=== PATIENT | male | born 1940 | race Caucasian/White ===

== ENCOUNTER 2016-12-16 20:51 | Observation (INO) | payer OTHER ==
--- NOTE | 2016-12-16 21:45 | DR.GENAD ---
HPI - PCP Primary Care Physician: THANH - HPI Comment HPI Comment: ABDOMINAL PAIN THAT GOT WORSE TONIGHT. TOOK LAXITIVE WITH POOR RESULT. NOW RUNNING FEVER. PATIENT IS WEAK, NOT EATING AND FEEL DRAIN OF ENERGY. CONCERN HE WILL PASS OUT. - Complaint/Symptoms Chief Complaint Doctors Comments: ABDOMINAL PAIN. Chief Complaint:: CONSTIPATION Self Treatment fo Chief Complaint: PATIENT HAS BEEN TAKING MIRALAX - Nurses notes reviewed Nurses Notes Review: Yes - Source History Provided: Patient - Mode of Arrival Mode of Arrival: Ambulatory - Timing Onset of Chief Complaint: 12/16/16 Came on: Gradually - Duration Duration: Constant Duration: Days - Severity Severity: Moderate PMH - PMH Past Medical History: Yes Past Medical History Comment: PARKINSON'S DISEASE, [place] FEVER ARTHRITIS Past Surgical History: No - Family History History of Family Medical Conditions: Yes Family Medical History: Diabetes Mellitus, [place], Coronary Artery Disease - Social History Does patient currently use any type of tobacco product: No Have you used tobacco products in the last 12 months: No Type of Tobacco Use: None Does any household member use tobacco: No Alcohol Use: None Do you use any recreational Drugs:: No Lives With: Family Lives Where: Home - infectious screening In the last 2 months have you had wt loss of >10#?: NO Have you had fever, night sweats or hemotysis?: No Have you traveled outside the country in the last 6 months?: No Isolation: Standard ROS - Review of Systems Constitutional: Fever, Weakness, Fatigue, Loss of Appetite. negative: Chills, Diaphoresis Eyes: No Symptoms Reported. negative: Eye Pain, Discharge ENTM: Nose Congestion. negative: Ear Pain, Nose Discharge, Throat Pain Respiratoy: Non-Productive Cough, Short of Breath. negative: Productive Cough, Wheezing, Hemoptysis Cardiovascular: Chest Pain, Edema, Syncope Gastrointestinal/Abdominal: Abdominal Pain Genitourinary: negative: Dysuria, Frequency, Hematuria Neurological: Tremors (PARKINSONS) Musculoskeletal: Muscle Pain Integumentary: Dryness Endocrine: No Symptoms Reported Unable to Obtain Due To: Altered mental status PE - Vital Signs Vitals: Temperature 98.0 F Pulse Rate 85 Respiratory Rate 16 Blood Pressure 194/89 O2 Sat by Pulse Oximetry 100 - General Limitations: No Limitations General Appearance: Alert - Head Head Exam: Normal Inspection - Eyes Eye exam: Normal Appearance - ENT ENT Exam: Normal External Ear Exam TM/Canal Exam: Bilateral Normal Nose Exam: Normal Nose Exam Mouth Exam: Normal Inspection Throat Exam: Normal Inspection - Neck Neck Exam: Trachea Midline. negative: Tenderness, Meningismus, Lymphadenopathy - Chest Chest Inspection: Symmetric Chest Wall Rise - Respiratory Respiratory Exam: Normal Lung Sounds Bilat Respiratory Exam: Bilateral Rhonchi, Upper Rhonchi, Lower Rhonchi - Abdominal Exam Abdominal Exam: Normal Inspection, Normal Bowel Sounds, Soft, Tenderness Abdominal Tenderness: Diffuse, Moderate - Extremities Extremities Exam: Normal Inspection - Back Back Exam: Normal Inspection - Neurologic Neurological Exam: Alert, Oriented X3 - Psychiatric Psychiatric Exam: Normal Affect - Skin Skin Exam: Dry MDM - Differential Diagnosis Differential Diagnosis: BOWEL OBSTRUCTION, ABDOMINAL PAIN, WEAKNESS, ANOREXIA, UTI Course - Treatment Treatment: SEE REPORT - Education/Counseling Education/Counseling: Patient, Family, Education Educated On: Diagnosis ROR - Labs Reviewed Laboratory Results Reviewed?: Yes Result Diagrams: 12/17/16 04:35 12/17/16 04:35 Laboratory: WBC 6.6 X10^3/uL (3.6-10.0) 12/17/16 04:35 RBC 4.08 X10^6/uL (4.7-6.0) L 12/17/16 04:35 Hgb 12.4 g/dL (13.5-18.0) L 12/17/16 04:35 Hct 36.4 % (42.0-54.0) L 12/17/16 04:35 MCV 89.3 fL (80.0-100.0) 12/17/16 04:35 MCH 30.5 pg (27.0-34.0) 12/17/16 04:35 MCHC 34.1 g/dL (33.0-35.0) 12/17/16 04:35 RDW 13.4 % (11.6-16.5) 12/17/16 04:35 Plt Count 259 X10^3/uL (150.0-450.0) 12/17/16 04:35 MPV 7.6 fL (7.4-11.0) 12/17/16 04:35 Neut % 66.5 % (42.0-75.0) 12/17/16 04:35 Lymph % 20.5 % (21.0-51.0) L 12/17/16 04:35 [place] % 10.9 % (0.0-13.0) 12/17/16 04:35 Eos % 1.3 % (0.9-2.9) 12/17/16 04:35 Baso % 0.8 % (0.2-1.0) 12/17/16 04:35 Neut # 4.4 x10^3/uL (2.2-4.8) 12/17/16 04:35 Lymph # 1.3 X10^3/uL (1.3-2.9) 12/17/16 04:35 [place] # 0.7 x10^3/uL (0.3-0.8) 12/17/16 04:35 Eos # 0.1 x10^3/uL (0.0-0.2) 12/17/16 04:35 Baso # 0.1 X10^3/uL (0.0-0.1) 12/17/16 04:35 Absolute Nucleated RBC 0.0 /100WBC 12/17/16 04:35 Sodium 142 mmol/L (136-145) 12/17/16 04:35 Corrected Sodium TNP 12/17/16 04:35 Potassium 4.0 mmol/L (3.5-5.1) 12/17/16 04:35 Chloride 108 mmol/L (98-107) H 12/17/16 04:35 Carbon Dioxide 25.3 mmol/L (21-32) 12/17/16 04:35 BUN 11 mg/dL (7-18) 12/17/16 04:35 Creatinine 0.78 mg/dL (0.70-1.30) 12/17/16 04:35 Est GFR (MDRD) Af Amer > 60 (>60) 12/17/16 04:35 Est GFR (MDRD) Non-Af > 60 (>60) 12/17/16 04:35 Glucose 99 mg/dL (65-99) 12/17/16 04:35 Calcium 8.3 mg/dL (8.5-10.1) L 12/17/16 04:35 Corrected Calcium 9.3 mg/dL (8.5-10.1) 12/17/16 04:35 Total Bilirubin 0.50 mg/dL (0.2-1.0) 12/17/16 04:35 AST 25 Units/L (15-37) 12/17/16 04:35 ALT 32 Units/L (12-78) 12/17/16 04:35 Alkaline Phosphatase 73 Units/L (46-116) 12/17/16 04:35 Total Protein 5.7 g/dL (6.4-8.2) L 12/17/16 04:35 Albumin 2.7 g/dL (3.4-5.0) L 12/17/16 04:35 Globulin 3.0 g/dL (2.5-4.5) 12/17/16 04:35 Albumin/Globulin Ratio 0.9 Ratio (1.1-2.1) L 12/17/16 04:35 Specimen Type Clean catch urine 12/16/16 23:12 Urine Color Yellow (YELLOW) 12/16/16 23:12 Urine Appearance Clear (CLEAR) 12/16/16 23:12 Urine pH 6.0 (5.0 - 8.0) 12/16/16 23:12 Ur Specific [place] 1.015 (1.000-1.030) 12/16/16 23:12 Urine Protein Negative (NEGATIVE) 12/16/16 23:12 Urine Glucose (UA) Negative (NEGATIVE) 12/16/16 23:12 Urine Ketones Negative (NEGATIVE) 12/16/16 23:12 Urine Occult Blood Negative (NEGATIVE) 12/16/16 23:12 Urine Nitrite Negative (NEGATIVE) 12/16/16 23:12 Urine Bilirubin Negative (NEGATIVE) 12/16/16 23:12 Urine Urobilinogen Normal (NORMAL) 12/16/16 23:12 Ur Leukocyte Esterase Negative (NEGATIVE) 12/16/16 23:12 Urine RBC 0-1 /HPF (NEGATIVE) 12/16/16 23:12 Urine WBC 0-2 /HPF (NEGATIVE) 12/16/16 23:12 Ur Squamous Epith Cells Rare /HPF (NEGATIVE) 12/16/16 23:12 Urine Bacteria Negative /HPF (NEGATIVE) 12/16/16 23:12 Ur Culture Indicated? No/not indicated 12/16/16 23:12 - XRAY XRAY Interpreted by: Radiologist - EKG Rhythm: NSR (EKG NOTED.) - Diagnosis Discharge Problem: Generalized weakness Abdominal pain Qualifiers: Abdominal location: generalized Qualified Code(s): R10.84 - Generalized abdominal pain Failure to thrive Qualifiers: Failure to thrive age range: in adult Qualified Code(s): R62.7 - Adult failure to thrive - Discharge Plan Disposition: 09 ADMITTED INPATIENT Condition: Stable - Follow ups/Referrals - Instructions
--- NOTE | 2016-12-16 22:12 | RAD ---
Acute abdominal series with single view chest Indication: Constipation Comparison: Chest x-ray 09/08/2015 Findings: The heart size is normal and the lungs are clear. The bowel gas pattern is normal. No free air identified. The stool burden is not markedly increased. Impression: No acute bone abnormality. No gross constipation. Reported By:
[2016-12-16 22:13] LABS: ALANINE AMINOTRANSFERASE 42 Units/L (12-78); ALBUMIN 3.6 g/dL (3.4-5.0); ALKALINE PHOSPHATASE 91 Units/L (46-116); ASPARTATE AMINO TRANSFERASE 33 Units/L (15-37); BLOOD UREA NITROGEN 12 mg/dL (7-18); CALCIUM 8.9 mg/dL (8.5-10.1); CARBON DIOXIDE 28.1 mmol/L (21-32); CHLORIDE 105 mmol/L (98-107); CREATININE 1.04 mg/dL (0.70-1.30); GLUCOSE 106 mg/dL (65-99); SODIUM 141 mmol/L (136-145); TOTAL PROTEIN 7.3 g/dL (6.4-8.2); eGFR BLACK RACES > 60 (>60); eGFR NON BLACK RACES > 60 (>60)
[2016-12-16 22:32] LABS: BASOPHILS # (AUTO) 0.1 X10^3/uL (0.0-0.1); BASOPHILS % (AUTO) 0.9 % (0.2-1.0); EOSINOPHILS % (AUTO) 0.5 % (0.9-2.9); HEMATOCRIT 38.4 % (42.0-54.0); HEMOGLOBIN 13.2 g/dL (13.5-18.0); LYMPHOCYTES # (AUTO) 0.7 X10^3/uL (1.3-2.9); LYMPHOCYTES % (AUTO) 7.6 % (21.0-51.0); MEAN CORPUSCULAR HEMOGLOBIN 30.5 pg (27.0-34.0); MEAN CORPUSCULAR HGB CONC 34.3 g/dL (33.0-35.0); MONOCYTES # (AUTO) 0.6 x10^3/uL (0.3-0.8); MONOCYTES % (AUTO) 6.8 % (0.0-13.0); NEUTROPHILS % (AUTO) 84.2 % (42.0-75.0); PLATELET COUNT 301 X10^3/uL (150.0-450.0); RED BLOOD COUNT 4.32 X10^6/uL (4.7-6.0); RED CELL DISTRIBUTION WIDTH 13.3 % (11.6-16.5); WHITE BLOOD COUNT 9.6 X10^3/uL (3.6-10.0)
[2016-12-16 23:36] LABS: BILIRUBIN,URINE NEGATIVE (NEGATIVE); BLOOD/HEMOGLOBIN,URINE NEGATIVE (NEGATIVE); GLUCOSE, URINE NEGATIVE (NEGATIVE); KETONES,URINE NEGATIVE (NEGATIVE); LEUKOCYTE ESTERASE ,URINE NEGATIVE (NEGATIVE); NITRITES,URINE NEGATIVE (NEGATIVE); PROTEIN,URINE NEGATIVE (NEGATIVE); UROBILINOGEN,URINE NORMAL (NORMAL)
[2016-12-16 23:44] LABS: APPEARANCE,URINE CLEAR (CLEAR); BACTERIA,URINE NEGATIVE /HPF (NEGATIVE); COLOR,URINE YELLOW (YELLOW); RBC,URINE 0-1 /HPF (NEGATIVE); SQUAMOUS EPITHELIAL CELL,UR RARE /HPF (NEGATIVE)
[2016-12-16] MEDS ORDERED: ZOFRAN INJ 4 MG VIAL IVP PRN (23:58)
[2016-12-16] MEDS ORDERED: MORPHINE SULFATE INJ 2 MG IVP PRN (23:58)
[2016-12-17] MEDS: NS 1000 ML 1,000 ML IV SCH ×3 (00:18→13:40)
[2016-12-17 01:33] VITALS: BMI 23.1
[2016-12-17] MEDS: ANTIVERT TAB 25 MG PO SCH ×3 (05:22→21:19)
[2016-12-17] MEDS: PERIACTIN TAB 4 MG PO SCH ×3 (05:22→21:19)
[2016-12-17] MEDS: SINEMET (PLAIN) 25/100 MG PO SCH ×3 (05:22→21:20)
[2016-12-17 05:43] LABS: BASOPHILS # (AUTO) 0.1 X10^3/uL (0.0-0.1); BASOPHILS % (AUTO) 0.8 % (0.2-1.0); EOSINOPHILS # (AUTO) 0.1 x10^3/uL (0.0-0.2); EOSINOPHILS % (AUTO) 1.3 % (0.9-2.9); HEMATOCRIT 36.4 % (42.0-54.0); HEMOGLOBIN 12.4 g/dL (13.5-18.0); LYMPHOCYTES # (AUTO) 1.3 X10^3/uL (1.3-2.9); LYMPHOCYTES % (AUTO) 20.5 % (21.0-51.0); MEAN CORPUSCULAR HEMOGLOBIN 30.5 pg (27.0-34.0); MEAN CORPUSCULAR HGB CONC 34.1 g/dL (33.0-35.0); MEAN CORPUSCULAR VOLUME 89.3 fL (80.0-100.0); MEAN PLATELET VOLUME 7.6 fL (7.4-11.0); MONOCYTES # (AUTO) 0.7 x10^3/uL (0.3-0.8); MONOCYTES % (AUTO) 10.9 % (0.0-13.0); NEUTROPHILS # (AUTO) 4.4 x10^3/uL (2.2-4.8); NEUTROPHILS % (AUTO) 66.5 % (42.0-75.0); PLATELET COUNT 259 X10^3/uL (150.0-450.0); RED BLOOD COUNT 4.08 X10^6/uL (4.7-6.0); RED CELL DISTRIBUTION WIDTH 13.4 % (11.6-16.5); WHITE BLOOD COUNT 6.6 X10^3/uL (3.6-10.0)
[2016-12-17 05:53] LABS: ALANINE AMINOTRANSFERASE 32 Units/L (12-78); ALBUMIN 2.7 g/dL (3.4-5.0); ALKALINE PHOSPHATASE 73 Units/L (46-116); ASPARTATE AMINO TRANSFERASE 25 Units/L (15-37); BLOOD UREA NITROGEN 11 mg/dL (7-18); CALCIUM 8.3 mg/dL (8.5-10.1); CARBON DIOXIDE 25.3 mmol/L (21-32); CHLORIDE 108 mmol/L (98-107); COR CA(FOR HYPOALB) 9.3 mg/dL (8.5-10.1); CREATININE 0.78 mg/dL (0.70-1.30); GLUCOSE 99 mg/dL (65-99); SODIUM 142 mmol/L (136-145); TOTAL PROTEIN 5.7 g/dL (6.4-8.2); eGFR BLACK RACES > 60 (>60); eGFR NON BLACK RACES > 60 (>60)
[2016-12-17] MEDS ORDERED: ULTRAM PO PRN (10:14)
[2016-12-17] MEDS ORDERED: COLACE CAP 100 MG PO SCH ×2 (11:00→21:00)
[2016-12-17] MEDS ORDERED: NS 100 ML IV 100 ML IV ONE (12:23)
--- NOTE | 2016-12-17 13:25 | CT ---
HISTORY: Abdominal pain/constipation. Study: CT abdomen and pelvis with contrast Comparison: Acute abdominal series dated September 08, 2015. Technique: Multiple axial images of the abdomen and pelvis were obtained from the lung bases to the pubic symph ysis after/ without/ both prior to and after the administration of IV contrast. Dose reduction tech niques including Automated Exposure Control (AEC) and adjustment of mA and kV were utilized. Findings: Bibasilar scarring versus atelectasis. Otherwise, the visualized portions of the lung bases are unre markable. Multiple hypodense lesions within the visualized liver. Many of these are too small to jordi racterize. These likely represent simple cysts. Remaining liver is unremarkable. Punctate nonobstruc ting calcification within the left superior renal pole. Small hiatal hernia. The spleen, pancreas, r ight kidney, and adrenal glands are unremarkable in their CT appearance. The gallbladder is unremark able in its CT appearance. No significant mesenteric lymphadenopathy or stranding can be observed. No free fluid or free air is seen within the abdomen. Large amounts of stool are seen from the tra nsverse colon to the rectum. The visualized large and small bowel otherwise appear normal. The appen deo is not well seen. The bladder and prostate appear normal. Small fat containing umbilical hernia. Degenerative changes of the spine. The osseous structures otherwise appear normal for age. IMPRESSION: 1. Constellation of findings likely representing constipation. No CT evidence to suggest acute abdo dayana/pelvic pathology. 2. Other chronic findings as above. Reported By:
[2016-12-17] MEDS: MILK OF MAGNESIA PO SCH ×4 (13:34→21:18)
[2016-12-17] MEDS: MEGACE PO SCH ×3 (13:34→21:20)
[2016-12-17] MEDS ORDERED: VISTARIL PO SCH (21:00)
[2016-12-17] MEDS ORDERED: MIRALAX POWDER (1 DOSE 17GM) PO SCH (21:00)
[2016-12-17] MEDS ORDERED: SENOKOT PO SCH (21:00)
[2016-12-17] MEDS: COLACE CAP 100 MG PO SCH (21:19)
[2016-12-18 05:04] LABS: ALANINE AMINOTRANSFERASE 18 Units/L (12-78); ALBUMIN 2.9 g/dL (3.4-5.0); ALKALINE PHOSPHATASE 79 Units/L (46-116); ASPARTATE AMINO TRANSFERASE 26 Units/L (15-37); BLOOD UREA NITROGEN 8 mg/dL (7-18); CALCIUM 8.3 mg/dL (8.5-10.1); CARBON DIOXIDE 26.5 mmol/L (21-32); CHLORIDE 105 mmol/L (98-107); COR CA(FOR HYPOALB) 9.2 mg/dL (8.5-10.1); CREATININE 0.88 mg/dL (0.70-1.30); GLUCOSE 108 mg/dL (65-99); SODIUM 139 mmol/L (136-145); TOTAL PROTEIN 6.1 g/dL (6.4-8.2); eGFR BLACK RACES > 60 (>60); eGFR NON BLACK RACES > 60 (>60)
[2016-12-18] MEDS: NS 1000 ML 1,000 ML IV SCH (05:04)
[2016-12-18 05:21] LABS: BASOPHILS % (AUTO) 0.7 % (0.2-1.0); EOSINOPHILS # (AUTO) 0.1 x10^3/uL (0.0-0.2); EOSINOPHILS % (AUTO) 1.5 % (0.9-2.9); HEMATOCRIT 38.3 % (42.0-54.0); LYMPHOCYTES # (AUTO) 1.2 X10^3/uL (1.3-2.9); LYMPHOCYTES % (AUTO) 18.5 % (21.0-51.0); MEAN CORPUSCULAR HEMOGLOBIN 30.1 pg (27.0-34.0); MEAN CORPUSCULAR HGB CONC 33.8 g/dL (33.0-35.0); MEAN PLATELET VOLUME 7.5 fL (7.4-11.0); MONOCYTES # (AUTO) 0.8 x10^3/uL (0.3-0.8); MONOCYTES % (AUTO) 11.3 % (0.0-13.0); NEUTROPHILS # (AUTO) 4.5 x10^3/uL (2.2-4.8); PLATELET COUNT 267 X10^3/uL (150.0-450.0); RED CELL DISTRIBUTION WIDTH 13.6 % (11.6-16.5); WHITE BLOOD COUNT 6.6 X10^3/uL (3.6-10.0)
[2016-12-18] MEDS: PERIACTIN TAB 4 MG PO SCH (06:01)
[2016-12-18] MEDS: ANTIVERT TAB 25 MG PO SCH (06:01)
[2016-12-18] MEDS: MEGACE PO SCH (06:01)
[2016-12-18] MEDS: SINEMET (PLAIN) 25/100 MG PO SCH (06:01)
[2016-12-18 06:51] LABS: ERYTHROCYTE SEDIMENTATION RATE 16 MM/HOUR (0-15)
[2016-12-18 08:04] VITALS: BP 157/75
[2016-12-18] MEDS: MILK OF MAGNESIA PO SCH (08:23)
[2016-12-18] MEDS: COLACE CAP 100 MG PO SCH (08:23)
--- NOTE | 2016-12-18 11:25 | DR.H&P ---
H&P - History & Physical for Day of: H&P Date: 12/16/16 - Chief Complaint Chief Complaint: abdominal pain, constipation - Allergies Allergies/Adverse Reactions: Allergies Allergy/AdvReac Type Severity Reaction Status Date / Time No Known Drug Allergy Allergy Verified 07/30/15 15:14 - History of Present Illness History of Present Illness: Patient is a 75yo white male who presented the emergency room with complaints of abdominal pain, constipation and vomiting, Patient has not had a bowel movement in four days. He is also very weak. 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 Patient admitted with abdominal pain and constipation. Physical exam reveal diffuse tenderness and abdominal distention. - Past Medical History Past Medical History: Dementia Additional Medical History: parkinsons, [place] mountain spotted fever - Past Surgical History Surgical History: No History - Family History Family Medical History: Diabetes Mellitus, [place], Coronary Artery Disease - Social History Does patient currently use any type of tobacco product: No Have you used tobacco products in the last 12 months: No Type of Tobacco Use: None Does any household member use tobacco: No Alcohol Use: None Drug Use: None - Medications Home Medications: Carbidopa-Levodopa 25/100 mg [Sinemet (Plain) 25/100 mg] 1 tab PO TID 12/16/16 [ History Confirmed 12/17/16] Meclizine HCl [Meclizine 25] 25 mg PO TID 12/16/16 [History Confirmed 12/17/16] Tramadol HCl 50 mg PO Q6H PRN 12/16/16 [History Confirmed 12/17/16] Sennosides-Docusate Sodium [Docusate Sodium/Senna 8.6-50 mg] 2 tab PO HS PRN 01/26 [History Confirmed 12/17/16] - Review of Systems Constitutional: Weakness Eyes: No Symptoms Reported ENT: No Symptoms Reported Respiratory: No Symptoms Reported Cardiovascular: No Symptoms Reported Gastrointestinal: Nausea, Vomiting, Abdominal Pain, Constipation Genitourinary: No Symptoms Reported Musculoskeletal: No Symptoms Reported Skin: No Symptoms Reported Neurological: No Symptoms Reported - Physical Exam Vital Signs: Temperature 97.5 F Pulse Rate [Left Radial] 64 Respiratory Rate 18 Blood Pressure [Left Arm] 157/75 Blood Pressure [Right Arm] 120/77 O2 Sat by Pulse Oximetry 98 Oriented: Normal Eyes: Normal Ear: Normal Nose: Normal Throat: Normal Respiratory: Clear Throughout Cardiovascular: Normal : Normal Auscultation: Bowel Sounds: Normal Palpation: Normal Tenderness: Diffuse Skin: Normal Musculoskeletal: Normal Psychiatric: Normal Mood Description: Calm, Appropriate Affect: Normal Speech Pattern: Clear, Appropriate - Assessment/Plan (1) Constipation Qualifiers: Constipation type: C Status: Acute Plan: admit for futher observation (2) Abdominal pain Qualifiers: Abdominal location: generalized Qualified Code(s): R10.84 - Generalized abdominal pain Status: Acute Plan: morphine IV PRN (3) Generalized weakness Status: Acute Plan: IVF continue to monitor, follow up in am
--- NOTE | 2016-12-18 11:31 | PCM.PROG ---
Progress Note - Progress Note for Day of Date: 12/17/16 - Subjective Subjective: Patient is a 75year white male who was admitted for abdominal pain and constipation. Patient states he had still not had a bowel movement. We are going to start him on milk of magnesia, Colace and miralax and order an abdominal CT. Physical exam reveal diffuse abdominal tenderness as well as abdominal distention. RBC 4.08, Hgb 12.4, Hct 36.4, Lymph% 20.5, Chloride 108, Calcium 8.3, Total Protein 5.7, Albumin 2.7, Albumin/Globulin Ratio 0.9 - Past Medical Family Social History Past Med/Fam/Surg Hx: No changes since H&P Allergies: Allergies No Known Drug Allergy Allergy (Verified 07/30/15 15:14) - Review of Systems ROS: No change since H&P - Vital Signs and I&O's Vital Signs: Temperature 97.5 F Pulse Rate [Left Radial] 64 Respiratory Rate 18 Blood Pressure [Left Arm] 157/75 Blood Pressure [Right Arm] 120/77 O2 Sat by Pulse Oximetry 98 Intake and Output: Intake & Output 12/15/16 12/16/16 12/17/16 12/18/16 11:59 11:59 11:59 11:59 Intake Total 360 2620 Output Total 200 450 Balance 160 2170 - Physical Exam Oriented: Normal Eyes: Normal Ear: Normal Nose: Normal Throat: Normal Cardiovascular: Normal : Normal Auscultation: Bowel Sounds: Normal Tenderness: Diffuse Skin: Normal Musculoskeletal: Normal Psychiatric: Normal Mood Description: Calm, Appropriate Affect: Normal Speech Pattern: Clear, Appropriate - Laboratory and Diagnostics Result Diagrams: 12/18/16 04:00 12/18/16 03:20 Labs: Laboratory WBC 6.6 X10^3/uL (3.6-10.0) 12/18/16 04:00 RBC 4.30 X10^6/uL (4.7-6.0) L 12/18/16 04:00 Hgb 13.0 g/dL (13.5-18.0) L 12/18/16 04:00 Hct 38.3 % (42.0-54.0) L 12/18/16 04:00 MCV 89.0 fL (80.0-100.0) 12/18/16 04:00 MCH 30.1 pg (27.0-34.0) 12/18/16 04:00 MCHC 33.8 g/dL (33.0-35.0) 12/18/16 04:00 RDW 13.6 % (11.6-16.5) 12/18/16 04:00 Plt Count 267 X10^3/uL (150.0-450.0) 12/18/16 04:00 MPV 7.5 fL (7.4-11.0) 12/18/16 04:00 Neut % 68.0 % (42.0-75.0) 12/18/16 04:00 Lymph % 18.5 % (21.0-51.0) L 12/18/16 04:00 [place] % 11.3 % (0.0-13.0) 12/18/16 04:00 Eos % 1.5 % (0.9-2.9) 12/18/16 04:00 Baso % 0.7 % (0.2-1.0) 12/18/16 04:00 Neut # 4.5 x10^3/uL (2.2-4.8) 12/18/16 04:00 Lymph # 1.2 X10^3/uL (1.3-2.9) L 12/18/16 04:00 [place] # 0.8 x10^3/uL (0.3-0.8) 12/18/16 04:00 Eos # 0.1 x10^3/uL (0.0-0.2) 12/18/16 04:00 Baso # 0.0 X10^3/uL (0.0-0.1) 12/18/16 04:00 Absolute Nucleated RBC 0.1 /100WBC 12/18/16 04:00 ESR 16 MM/HOUR (0-15) H 12/18/16 04:00 Sodium 139 mmol/L (136-145) 12/18/16 03:20 Corrected Sodium TNP 12/18/16 03:20 Potassium 3.7 mmol/L (3.5-5.1) 12/18/16 03:20 Chloride 105 mmol/L (98-107) 12/18/16 03:20 Carbon Dioxide 26.5 mmol/L (21-32) 12/18/16 03:20 BUN 8 mg/dL (7-18) 12/18/16 03:20 Creatinine 0.88 mg/dL (0.70-1.30) 12/18/16 03:20 Est GFR (MDRD) Af Amer > 60 (>60) 12/18/16 03:20 Est GFR (MDRD) Non-Af > 60 (>60) 12/18/16 03:20 Glucose 108 mg/dL (65-99) H 12/18/16 03:20 Calcium 8.3 mg/dL (8.5-10.1) L 12/18/16 03:20 Corrected Calcium 9.2 mg/dL (8.5-10.1) 12/18/16 03:20 Total Bilirubin 0.50 mg/dL (0.2-1.0) 12/18/16 03:20 AST 26 Units/L (15-37) 12/18/16 03:20 ALT 18 Units/L (12-78) 12/18/16 03:20 Alkaline Phosphatase 79 Units/L (46-116) 12/18/16 03:20 C-Reactive Protein 4.00 mg/L (0-3.0) H 12/18/16 03:20 Total Protein 6.1 g/dL (6.4-8.2) L 12/18/16 03:20 Albumin 2.9 g/dL (3.4-5.0) L 12/18/16 03:20 Globulin 3.2 g/dL (2.5-4.5) 12/18/16 03:20 Albumin/Globulin Ratio 0.9 Ratio (1.1-2.1) L 12/18/16 03:20 Specimen Type Clean catch urine 12/16/16 23:12 Urine Color Yellow (YELLOW) 12/16/16 23:12 Urine Appearance Clear (CLEAR) 12/16/16 23:12 Urine pH 6.0 (5.0 - 8.0) 12/16/16 23:12 Ur Specific [place] 1.015 (1.000-1.030) 12/16/16 23:12 Urine Protein Negative (NEGATIVE) 12/16/16 23:12 Urine Glucose (UA) Negative (NEGATIVE) 12/16/16 23:12 Urine Ketones Negative (NEGATIVE) 12/16/16 23:12 Urine Occult Blood Negative (NEGATIVE) 12/16/16 23:12 Urine Nitrite Negative (NEGATIVE) 12/16/16 23:12 Urine Bilirubin Negative (NEGATIVE) 12/16/16 23:12 Urine Urobilinogen Normal (NORMAL) 12/16/16 23:12 Ur Leukocyte Esterase Negative (NEGATIVE) 12/16/16 23:12 Urine RBC 0-1 /HPF (NEGATIVE) 12/16/16 23:12 Urine WBC 0-2 /HPF (NEGATIVE) 12/16/16 23:12 Ur Squamous Epith Cells Rare /HPF (NEGATIVE) 12/16/16 23:12 Urine Bacteria Negative /HPF (NEGATIVE) 12/16/16 23:12 Ur Culture Indicated? No/not indicated 12/16/16 23:12 Radiology Reviewed: Yes - Plan (1) Constipation Status: Acute Qualifiers: Constipation type: C Plan: milk of magnesia, Colace, and miralax (2) Abdominal pain Status: Acute Qualifiers: Abdominal location: generalized Qualified Code(s): R10.84 - Generalized abdominal pain Plan: morphine IV PRN, Abdominal CT with and without contrast (3) Generalized weakness Status: Acute Plan: IVF continue to monitor, follow up in am
--- NOTE | 2016-12-18 11:33 | DR.CARTERD ---
- Discharge Summary for: Discharge Summary for Date of:: 12/18/16 - Admission Date Date of Admission: 12/16/16 - Admission Diagnoses Admission Diagnosis: Abdominal pain Constipation - Discharge Date Discharge Date: 12/18/16 - Discharge Diagnoses Discharge Diagnosis: Abdominal Pain Constipation - Hospital Course Hospital Course: Patient is doing much better this am and is ready to go home. He has had [address] with and without contrast shows constellation of findings likely representing constipation, large amount of stool seen in the transverse colon to the rectum. RBC 4.30, Hgb 13.0, Hct 38.3, Lymph% 18.5, Lymph # 1.2, ESR 16, Glucose 108, Calcium 8.3, CRP 4.00, Total Protein 6.1, Albumin 2.9, Albumin/Globulin Ratio 0.9. We are going to discharge him home in stable condition to continue his home medications with the addition of milk of magnesia QID PRN, Colace 100mg PO BID and Miralax 17gm at bedtime. He is to follow up with his primary care providers. Labs: labs within normal limits with the exception of RBC 4.30, Hgb 13.0, Hct 38.3, Lymph% 18.5, Lymph# 1.2, ESR 16, Glucose 108, Calcium 8.3, CRP 4.00, Total Protein 6.1, Albumin 2.9, Albumin/Globulin Ratio 0.9 - Discharge Medications Discharge Medications: Carbidopa-Levodopa 25/100 mg [Sinemet (Plain) 25/100 mg] 1 tab PO TID 12/16/16 [ History] Meclizine HCl [Meclizine 25] 25 mg PO TID 12/16/16 [History] Tramadol HCl 50 mg PO Q6H PRN 12/16/16 [History] Sennosides-Docusate Sodium [Docusate Sodium/[place]enna 8.6-50 mg] 2 tab PO HS PRN 01/26 [History] Docusate Sodium [COLACE CAP 100 MG *] 100 mg PO BID #60 cap 12/18/16 [Rx] Magnesium Hydroxide Susp [Milk of Magnesia] 30 ml PO QID PRN #240 ml 12/18/16 [ Rx] Megestrol Acetate [MEGACE TAB 40 MG *] 40 mg PO TID #90 tab 12/18/16 [Rx] Polyethylene Glycol Pwd Ud [MIRALAX POWDER (17 GM DOSE) *] 17 gm PO HS #30 udp 12/18/16 [Rx] - Discharge Disposition Discharge Disposition: Home
== END 2016-12-18 11:00 | disposition home or self-care (01) ==
LOC: ER 21:10 → MED/SURG 23:55
PROVIDERS: ADMIT Internal Medicine; ATTEND Internal Medicine
DX: R10.84 Generalized abdominal pain (principal); R53.1 Weakness; R62.7 Adult failure to thrive; K59.09 Other constipation; M13.89 Other specified arthritis, multiple sites; G20 Parkinson's disease; D64.89 Other specified anemias
CPT/HCPCS: 36415; 74022; 74177; 80053; 81001; 85025; 85652; 86140; 94760; 96365; 99284; A4222; G8978; G8979; Q0177; S0179; G0378

== ENCOUNTER 2017-01-01 22:29 | Emergency (ER) | payer OTHER ==
[2017-01-01 22:33] VITALS: BP 151/76; BMI 24.3
--- NOTE | 2017-01-01 23:10 | DR.LACERAT ---
HPI - Primary Care Physician Primary Care Physician: jaylin baxter - Complaints Chief Complaint:: FELL LANDED ON BRICK WITH LEFT ARM. LACERATION NOTED TO LEFT FOREARM EXTENDING TO LEFT ELBOW. NO ACTIVE BLEEDING AT PRESENT TIME. - Reviewed Nurses Notes Reviewed: Yes - Source History Provided: Patient, Significant Other - Mode of Arrival Mode of Arrival: Ambulatory - Timing Onset of Chief Complaint: 01/01/17 PMH - PMH Past Medical History: Yes Past Medical History: Arthritis, Dementia Past Medical History Comment: PARKINSONS DISEASE Past Surgical History: No Surgical History: No History - Family History History of Family Medical Conditions: Yes Family Medical History: Diabetes Mellitus, [place], Coronary Artery Disease - Social History Does patient currently use any type of tobacco product: No Have you used tobacco products in the last 12 months: No Type of Tobacco Use: None Does any household member use tobacco: No Alcohol Use: None Do you use any recreational Drugs:: No Lives With: Spouse Lives Where: Home - infectious screening Have you traveled outside the country in the last 6 months?: No Isolation: Standard PE - Vital Signs Vitals: Temperature 98.0 F Pulse Rate 79 Respiratory Rate 16 Blood Pressure [Left Arm] 157/75 Blood Pressure [Right Arm] 120/77 Blood Pressure 151/76 O2 Sat by Pulse Oximetry 100 - Discharge Plan Condition: Stable Prescriptions: Cephalexin [Keflex Cap 500 mg] 500 mg PO TID #21 cap - Follow ups/Referrals Follow ups/Referrals: LA NENA BAXTER [Primary Care Provider] - 3 days - Instructions Instructions: Laceration Care, Adult, Elbow Contusion Additional Instructions: RETURN TO ED IF WORSE. REMOVE SUTURE IN 10 DAYS.
--- NOTE | 2017-01-01 23:33 | RAD ---
The three views of the left elbow Indication: Elbow pain after fall Findings: There is soft tissue swelling within the left elbow. No acute fracture or dislocation. The re is degenerative change of the radio capitellar and ulnar humeral joints. 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 Mild enthesopathic change of the triceps tendon. No significant joint effusion or fat pad displacement. Impression: 1.Soft tissue swelling with a left elbow without acute fracture or dislocation . 2. Degenerative change within the radio capitellar and ulnar humeral joints with enthesopathic navarro e of the common flexor and extensor tendons at their origins. Reported By:
[2017-01-01] MEDS ORDERED: XYLOCAINE 2 % (PLAIN) IJ ONE (23:48)
[2017-01-01] MEDS ORDERED: XYLOCAINE 2 % (PLAIN) ONE (23:49)
[2017-01-02] MEDS ORDERED: NEOSPORIN OINT TOP ONE (00:27)
[2017-01-02] MEDS ORDERED: KEFLEX CAP 500 MG PO ONE ×2 (00:27→00:28)
[2017-01-02] MEDS ORDERED: NEOSPORIN OINT ONE (00:29)
== END 2017-01-02 00:39 | disposition home or self-care (01) ==
LOC: ER 22:29
PROC: 0XQ90ZZ Repair Left Upper Arm, Open Approach (ICD-10-PCS; principal; 2017-01-01)
DX: S41.112A Laceration without foreign body of left upper arm, initial encounter (principal); W01.198A Fall on same level from slipping, tripping and stumbling with subsequent striking against other object, initial encounter
CPT/HCPCS: 12001; 73070; 99282; 99283; J2001

== ENCOUNTER 2017-03-14 20:26 | Inpatient (IN) | payer OTHER ==
[2017-03-14 20:32] VITALS: BMI 20.7
[2017-03-14] MEDS ORDERED: DEMEROL INJ IVP ONE (22:05)
[2017-03-14] MEDS ORDERED: PHENERGAN INJ 25 MG IM ONE (22:05)
[2017-03-14] MEDS ORDERED: ADACEL TDaP IM ONE ×2 (22:07→22:51)
--- NOTE | 2017-03-14 22:09 | DR.GENAD ---
HPI - Complaint/Symptoms Chief Complaint Doctors Comments: Patient states he was walking and fell on his back on the cement about 2 hours ago. States he has Parkinson Disease and falls all the time. States he fell earlier this week but did not hit his head or hurt himself. He is complaining of severe upper back pain with scratches on his back from the fall. State he does not know the last time he had a tetanus shot. He denies chest pain. SOB, nausea or vomiting. He denies any head trauma. States the pain is 10 of 10. Chief Complaint:: fell on concrete, flat on back. states he has laceration on back. - Nurses notes reviewed Nurses Notes Review: Yes - Source History Provided: Patient - Mode of Arrival Mode of Arrival: Wheelchair - Timing Onset of Chief Complaint: 03/14/17 Came on: Suddenly - Duration Duration: Constant How lon Duration: Hours - Location Location: upper back - Severity Severity: Severe - Modifying Factors Worsens:: movement Improves:: nothing PMH - PMH Past Medical History: Yes Past Medical History: Arthritis, Dementia Past Medical History Comment: sayra Past Surgical History: No Surgical History: No History - Family History History of Family Medical Conditions: Yes Family Medical History: Diabetes Mellitus, [place], Hypertension - Social History Do you use any recreational Drugs:: No - infectious screening Have you traveled outside the country in the last 6 months?: No ROS - Review of Systems Constitutional: No Symptoms Reported. negative: See HPI, Chills, Diaphoresis, Fever, Malaise, Weakness, Irritable, Fatigue, Loss of Appetite, Other Eyes: No Symptoms Reported ENTM: No Symptoms Reported Respiratoy: No Symptoms Reported Cardiovascular: No Symptoms Reported. negative: See HPI, Chest Pain, Edema, Palpitations, Syncope, Cyanosis, Skin Mottling, Other Gastrointestinal/Abdominal: No Symptoms Reported Genitourinary: No Symptoms Reported Neurological: No Symptoms Reported, Problems Walking Musculoskeletal: Back Pain (upper back with linear abrasions) Integumentary: Lesions, Wound, Bruises. negative: No Symptoms Reported, See HPI , Change in Color, Change in Hair/Nails, Dryness, Lumps, Rash, Itching, Juandice , Other Hematologic/Lymphatic: No Symptoms Reported Endocrine: No Symptoms Reported Psychiatric: No Symptoms Reported PE - Vital Signs Vitals: Temperature 98.6 F Pulse Rate 74 Respiratory Rate 18 Blood Pressure [Left Arm] 157/75 Blood Pressure [Right Arm] 120/77 Blood Pressure 131/75 O2 Sat by Pulse Oximetry 100 - General Limitations: No Limitations General Appearance: Alert, In Distress (moderate) - Head Head Exam: Normal Inspection, Atraumatic, Normocephalic - Eyes Eye exam: Normal Appearance, PERRL, EOMI. negative: Scleral Icterus, Conjunctival Injection, Nystagmus, Miosis, Mydrasis, Periorbital Swelling, Periorbital Tenderness, Other - ENT ENT Exam: Normal Exam, Normal Oropharynx, Normal External Ear Exam, Mucous Membranes Moist, TM's Normal Bilaterally External Ear Exam: Normal External Inspection TM/Canal Exam: Bilateral Normal Nose Exam: Normal Nose Exam Mouth Exam: Normal Inspection Throat Exam: Normal Inspection - Neck Neck Exam: Normal Inspection, Full ROM, Trachea Midline - Chest Chest Inspection: Normal Inspection, Symmetric Chest Wall Rise - Respiratory Respiratory Exam: Normal Lung Sounds Bilat Respiratory Exam: Bilateral Clear to Auscultation - Cardiovascular Cardiovascular Exam: Regular Rate, Normal Rhythm, Normal Heart Sounds - Abdominal Exam Abdominal Exam: Normal Inspection, Normal Bowel Sounds, Soft. negative: Distention, Tenderness, Guarding, Rebound, Rigidity, Dimnished Bowel Sounds, Hyperactive Bowel Sounds, Hypoactive Bowel Sounds, Organomegaly, Trauma, Incision, Ascites, Mass, Bruit, Pulsatile Mass, Hernia, Other Abdominal Tenderness: negative: RUQ, RLQ, LUQ, LLQ, Epigastrium, Suprapubic, Diffuse, Mild, Moderate, Severe, Other - Extremities Extremities Exam: Normal Inspection, Full ROM, Normal Capillary Refill. negative: Tenderness - Back Back Exam: Normal Inspection, Full ROM, Tenderness (upper back with multiple linear abrasion; no active bleeding) - Neurologic Neurological Exam: Alert, Oriented X3, CN II-XII Intact, Reflexes Normal. negative: Normal Gait (gait not tested) - Psychiatric Psychiatric Exam: Normal Affect, Normal Mood - Skin Skin Exam: Warm, Dry, Intact, Normal Color. negative: Rash, Cyanosis, Diaphoresis, Erythema, Pallor, Mottled, Other ROR - Labs Reviewed Laboratory Results Reviewed?: Yes (all labs and x-ray results reviewed and discussed with patient ) - Diagnosis Discharge Problem: Fall (on)(from) sidewalk curb, initial encounter, nondisplaced left transverse fracture L1, severe spinal stenosis L1-L2, Parkinson disease - Discharge Plan Disposition: ADMITTED INPATIENT Condition: Stable - Follow ups/Referrals Follow ups/Referrals: LA NENA LAW [Primary Care Provider] - 3 days - Instructions
[2017-03-14] MEDS ORDERED: DEMEROL INJ ONE (22:50)
[2017-03-14] MEDS ORDERED: PHENERGAN INJ 25 MG ONE (22:50)
--- NOTE | 2017-03-14 22:59 | CT ---
EXAM: CT THORACIC SPINE WITHOUT CONTRAST INDICATION: Fall, back pain COMPARISION: No priors TECHNIQUE: Axial CT examination of the thoracic spine was performed without intravenous contrast. Coronal and sa gittal planes were reconstructed using the axial data. FINDINGS: Bridging osteophytes are seen throughout the thoracic spine. There is fusion at multiple levels and i ncreased kyphotic curvature of the thoracic spine. No acute fracture or subluxation identified. The r egional skeleton is osteopenic. Vertebral body heights are preserved. The central canal is patent. Th e paraspinal soft tissues appear unremarkable. IMPRESSION: And bridging osteophytes are seen throughout the thoracic spine consistent with changes associated wi th DISH. No acute bony abnormality identified. Reported By:
--- NOTE | 2017-03-14 23:12 | CT ---
History: Status post fall with low back pain. Technique: Lumbar spine CT. Multiple contiguous axial CT images of the lumbar spine were obtained wit hout IV contrast. Sagittal and coronal reformatted images were reconstructed. Automated exposure cont rol (AEC) was utilized to adjust the MA and/or kV according to patient size. Comparison: CT abdomen pelvis dated 12/17/2016 Findings: There is generalized osteopenia. There is a nondisplaced fracture of the left transverse process of L 1. There is moderate to severe multilevel DDD and spondylosis throughout the lumbar spine. There is m oderate to severe multilevel facet arthrosis throughout the lumbar spine. There is a posterior disk o steophyte complex at L1-L2 resulting in moderate spinal canal stenosis. There is severe bilateral gina ral foraminal stenosis at L3-L4 and L4-L5. Moderate to severe bilateral foraminal stenosis at L5-S1. Impression: 1. Nondisplaced left transverse process fracture at L1. This was not seen on previous CT abdomen and pelvis. 2. Moderate to severe multilevel degenerative changes are noted as discussed above. There is spinal c anal stenosis at L1-L2 with moderate to severe multilevel neural foraminal stenosis. Reported By:
[2017-03-14] MEDS ORDERED: TORADOL 30 MG VIAL IVP STA (23:51)
[2017-03-14] MEDS ORDERED: TORADOL 30 MG VIAL IVP PRN (23:55)
[2017-03-14] MEDS ORDERED: ZOFRAN INJ 4 MG VIAL IVP PRN (23:56)
[2017-03-15] MEDS ORDERED: NS 1000 ML 1,000 ML ONE (00:21)
[2017-03-15] MEDS ORDERED: TORADOL 30 MG VIAL ONE (00:21)
[2017-03-15] MEDS: NS 1000 ML 1,000 ML IV SCH ×3 (00:26→23:34)
[2017-03-15 06:00] LABS: BASOPHILS # (AUTO) 0.1 X10^3/uL (0.0-0.1); BASOPHILS % (AUTO) 0.8 % (0.2-1.0); EOSINOPHILS # (AUTO) 0.1 x10^3/uL (0.0-0.2); EOSINOPHILS % (AUTO) 1.7 % (0.9-2.9); HEMATOCRIT 30.5 % (42.0-54.0); HEMOGLOBIN 10.4 g/dL (13.5-18.0); LYMPHOCYTES # (AUTO) 1.3 X10^3/uL (1.3-2.9); LYMPHOCYTES % (AUTO) 18.4 % (21.0-51.0); MEAN CORPUSCULAR HEMOGLOBIN 30.7 pg (27.0-34.0); MEAN CORPUSCULAR VOLUME 90.1 fL (80.0-100.0); MEAN PLATELET VOLUME 7.3 fL (7.4-11.0); MONOCYTES # (AUTO) 0.6 x10^3/uL (0.3-0.8); MONOCYTES % (AUTO) 8.8 % (0.0-13.0); NEUTROPHILS # (AUTO) 4.9 x10^3/uL (2.2-4.8); NEUTROPHILS % (AUTO) 70.3 % (42.0-75.0); PLATELET COUNT 244 X10^3/uL (150.0-450.0); RED BLOOD COUNT 3.39 X10^6/uL (4.7-6.0); RED CELL DISTRIBUTION WIDTH 13.7 % (11.6-16.5)
[2017-03-15] MEDS: MORPHINE SULFATE INJ 2 MG INJ IVP PRN ×2 (06:22→21:14)
[2017-03-15] MEDS: SINEMET (PLAIN) 25/100 MG PO SCH ×3 (06:25→21:14)
[2017-03-15 06:40] LABS: ALANINE AMINOTRANSFERASE 14 Units/L (12-78); ALBUMIN 2.4 g/dL (3.4-5.0); ALKALINE PHOSPHATASE 55 Units/L (46-116); ASPARTATE AMINO TRANSFERASE 20 Units/L (15-37); BLOOD UREA NITROGEN 20 mg/dL (7-18); CALCIUM 7.9 mg/dL (8.5-10.1); CARBON DIOXIDE 21.3 mmol/L (21-32); CHLORIDE 108 mmol/L (98-107); COR CA(FOR HYPOALB) 9.2 mg/dL (8.5-10.1); CREATININE 1.02 mg/dL (0.70-1.30); SODIUM 138 mmol/L (136-145); TOTAL PROTEIN 5.7 g/dL (6.4-8.2); eGFR BLACK RACES > 60 (>60); eGFR NON BLACK RACES > 60 (>60)
[2017-03-15] MEDS: RESTORIL CAP 15 MG PO PRN (21:14)
[2017-03-16] MEDS: NS 1000 ML 1,000 ML IV SCH ×3 (04:59→15:27)
[2017-03-16 05:18] LABS: BASOPHILS % (AUTO) 0.4 % (0.2-1.0); EOSINOPHILS % (AUTO) 0.3 % (0.9-2.9); HEMATOCRIT 32.5 % (42.0-54.0); LYMPHOCYTES # (AUTO) 0.4 X10^3/uL (1.3-2.9); LYMPHOCYTES % (AUTO) 2.8 % (21.0-51.0); MEAN CORPUSCULAR HEMOGLOBIN 30.4 pg (27.0-34.0); MEAN CORPUSCULAR HGB CONC 33.9 g/dL (33.0-35.0); MEAN CORPUSCULAR VOLUME 89.5 fL (80.0-100.0); MEAN PLATELET VOLUME 7.3 fL (7.4-11.0); MONOCYTES # (AUTO) 0.5 x10^3/uL (0.3-0.8); MONOCYTES % (AUTO) 4.4 % (0.0-13.0); NEUTROPHILS # (AUTO) 11.5 x10^3/uL (2.2-4.8); NEUTROPHILS % (AUTO) 92.1 % (42.0-75.0); PLATELET COUNT 265 X10^3/uL (150.0-450.0); RED BLOOD COUNT 3.63 X10^6/uL (4.7-6.0); RED CELL DISTRIBUTION WIDTH 13.9 % (11.6-16.5); WHITE BLOOD COUNT 12.5 X10^3/uL (3.6-10.0)
[2017-03-16 05:25] LABS: ALBUMIN 2.2 g/dL (3.4-5.0); ALKALINE PHOSPHATASE 62 Units/L (46-116); ASPARTATE AMINO TRANSFERASE 15 Units/L (15-37); BLOOD UREA NITROGEN 15 mg/dL (7-18); CALCIUM 7.7 mg/dL (8.5-10.1); CARBON DIOXIDE 21.4 mmol/L (21-32); CHLORIDE 107 mmol/L (98-107); COR CA(FOR HYPOALB) 9.1 mg/dL (8.5-10.1); CREATININE 0.96 mg/dL (0.70-1.30); SODIUM 137 mmol/L (136-145); TOTAL PROTEIN 5.6 g/dL (6.4-8.2); eGFR BLACK RACES > 60 (>60); eGFR NON BLACK RACES > 60 (>60)
[2017-03-16 05:34] LABS: ALANINE AMINOTRANSFERASE 7 Units/L (12-78)
[2017-03-16] MEDS: SINEMET (PLAIN) 25/100 MG PO SCH ×3 (05:45→21:45)
[2017-03-16 05:50] LABS: BAND NEUTROPHILS % 2 % (0-10); PLATELET MORPHOLOGY COMMENT NORMAL (NORMAL)
[2017-03-16] MEDS ORDERED: COLACE CAP 100 MG PO SCH (21:00)
[2017-03-16] MEDS: RESTORIL CAP 15 MG PO PRN (21:45)
[2017-03-16] MEDS: MILK OF MAGNESIA PO SCH (21:45)
[2017-03-17 05:19] LABS: BASOPHILS # (AUTO) 0.1 X10^3/uL (0.0-0.1); BASOPHILS % (AUTO) 0.8 % (0.2-1.0); EOSINOPHILS # (AUTO) 0.1 x10^3/uL (0.0-0.2); EOSINOPHILS % (AUTO) 2.1 % (0.9-2.9); HEMATOCRIT 29.9 % (42.0-54.0); HEMOGLOBIN 10.2 g/dL (13.5-18.0); LYMPHOCYTES % (AUTO) 15.1 % (21.0-51.0); MEAN CORPUSCULAR HEMOGLOBIN 31.2 pg (27.0-34.0); MEAN CORPUSCULAR HGB CONC 34.2 g/dL (33.0-35.0); MEAN CORPUSCULAR VOLUME 91.3 fL (80.0-100.0); MEAN PLATELET VOLUME 7.5 fL (7.4-11.0); MONOCYTES # (AUTO) 0.6 x10^3/uL (0.3-0.8); MONOCYTES % (AUTO) 9.3 % (0.0-13.0); NEUTROPHILS # (AUTO) 4.7 x10^3/uL (2.2-4.8); NEUTROPHILS % (AUTO) 72.7 % (42.0-75.0); PLATELET COUNT 221 X10^3/uL (150.0-450.0); RED BLOOD COUNT 3.27 X10^6/uL (4.7-6.0); WHITE BLOOD COUNT 6.5 X10^3/uL (3.6-10.0)
[2017-03-17 05:37] LABS: ALANINE AMINOTRANSFERASE 7 Units/L (12-78); ALKALINE PHOSPHATASE 55 Units/L (46-116); ASPARTATE AMINO TRANSFERASE 16 Units/L (15-37); BLOOD UREA NITROGEN 15 mg/dL (7-18); CALCIUM 7.6 mg/dL (8.5-10.1); CARBON DIOXIDE 23.2 mmol/L (21-32); CHLORIDE 108 mmol/L (98-107); COR CA(FOR HYPOALB) 9.2 mg/dL (8.5-10.1); CREATININE 0.91 mg/dL (0.70-1.30); SODIUM 138 mmol/L (136-145); TOTAL PROTEIN 5.2 g/dL (6.4-8.2); eGFR BLACK RACES > 60 (>60); eGFR NON BLACK RACES > 60 (>60)
[2017-03-17] MEDS: NS 1000 ML 1,000 ML IV SCH ×3 (05:37→17:42)
[2017-03-17] MEDS: SINEMET (PLAIN) 25/100 MG PO SCH (06:15)
[2017-03-17] MEDS ORDERED: CARBIDOPA PO SCH (11:00)
[2017-03-17] MEDS ORDERED: LEVODOPA PO SCH (11:00)
[2017-03-17 12:27] LABS: BILIRUBIN,URINE NEGATIVE (NEGATIVE); BLOOD/HEMOGLOBIN,URINE 3+ (NEGATIVE); GLUCOSE, URINE NEGATIVE (NEGATIVE); KETONES,URINE NEGATIVE (NEGATIVE); LEUKOCYTE ESTERASE ,URINE 3+ (NEGATIVE); NITRITES,URINE POSITIVE (NEGATIVE); PROTEIN,URINE 2+ (NEGATIVE); UROBILINOGEN,URINE NORMAL (NORMAL)
[2017-03-17 12:37] LABS: COLOR,URINE YELLOW (YELLOW)
[2017-03-17 12:38] LABS: APPEARANCE,URINE CLOUDY (CLEAR); BACTERIA,URINE 3+ /HPF (NEGATIVE); SQUAMOUS EPITHELIAL CELL,UR RARE /HPF (NEGATIVE)
[2017-03-17] MEDS: COLACE CAP 100 MG PO SCH ×2 (13:41→20:10)
[2017-03-17] MEDS: SINEMET (PLAIN) 25/250 MG PO SCH ×2 (13:42→22:10)
[2017-03-17] MEDS: MILK OF MAGNESIA PO SCH (20:10)
[2017-03-18] MEDS: SINEMET (PLAIN) 25/250 MG PO SCH ×3 (05:16→23:00)
[2017-03-18 05:51] LABS: BASOPHILS % (AUTO) 0.6 % (0.2-1.0); EOSINOPHILS # (AUTO) 0.2 x10^3/uL (0.0-0.2); EOSINOPHILS % (AUTO) 2.5 % (0.9-2.9); HEMATOCRIT 30.9 % (42.0-54.0); HEMOGLOBIN 10.7 g/dL (13.5-18.0); LYMPHOCYTES # (AUTO) 1.2 X10^3/uL (1.3-2.9); LYMPHOCYTES % (AUTO) 16.5 % (21.0-51.0); MEAN CORPUSCULAR HEMOGLOBIN 30.9 pg (27.0-34.0); MEAN CORPUSCULAR HGB CONC 34.8 g/dL (33.0-35.0); MEAN CORPUSCULAR VOLUME 88.8 fL (80.0-100.0); MEAN PLATELET VOLUME 7.3 fL (7.4-11.0); MONOCYTES # (AUTO) 0.6 x10^3/uL (0.3-0.8); NEUTROPHILS % (AUTO) 71.4 % (42.0-75.0); PLATELET COUNT 252 X10^3/uL (150.0-450.0); RED BLOOD COUNT 3.47 X10^6/uL (4.7-6.0); RED CELL DISTRIBUTION WIDTH 13.7 % (11.6-16.5)
[2017-03-18 05:54] LABS: ALANINE AMINOTRANSFERASE 16 Units/L (12-78); ALKALINE PHOSPHATASE 59 Units/L (46-116); ASPARTATE AMINO TRANSFERASE 16 Units/L (15-37); BLOOD UREA NITROGEN 10 mg/dL (7-18); CALCIUM 7.8 mg/dL (8.5-10.1); CARBON DIOXIDE 21.9 mmol/L (21-32); CHLORIDE 106 mmol/L (98-107); COR CA(FOR HYPOALB) 9.4 mg/dL (8.5-10.1); CREATININE 0.79 mg/dL (0.70-1.30); SODIUM 135 mmol/L (136-145); TOTAL PROTEIN 5.4 g/dL (6.4-8.2); eGFR BLACK RACES > 60 (>60); eGFR NON BLACK RACES > 60 (>60)
[2017-03-18] MEDS: NS 1000 ML 1,000 ML IV SCH ×2 (06:39→17:51)
[2017-03-18] MEDS: COLACE CAP 100 MG PO SCH ×3 (07:52→20:30)
--- NOTE | 2017-03-18 16:28 | DR.CONSULT ---
Consult - Consultation for Day of: Date: 03/18/17 (Thanks for the consult) - Chief Complaint Chief Complaint: Back pain, slip and fall. [facility]CO parkinsonism. - Allergies Allergies/Adverse Reactions: Allergies Allergy/AdvReac Type Severity Reaction Status Date / Time No Known Drug Allergies Allergy Verified 03/15/17 15:20 - History of Present Illness History of Present Illness: slip and fall at home. he is a [employer] parkinsonism. Is admitted under medical service. - Past Medical History Past Medical History: Arthritis, Dementia Additional Medical History: parkinsons, ina mountain spotted fever - Past Surgical History Surgical History: No History - Family History Family Medical History: Diabetes Mellitus, [place], Hypertension - Medications Home Medications: Carbidopa/Levodopa [Carbidopa-Levodopa 25-250 Tab] 1 each PO TID 03/17/17 [ History Confirmed 03/17/17] Cyproheptadine HCl [Periactin Tab 4 mg] 4 mg PO BID 03/17/17 [History Confirmed 03/17/17] Docusate Sodium [Docusate Sodium] 100 mg PO BID 03/17/17 [History Confirmed 11/26] Doxycycline Monohydrate [Doxycycline Monohydrate] 100 mg PO BID 03/17/17 [ History Confirmed 03/17/17] Megestrol Acetate [MEGACE TAB 40 MG *] 40 ml PO DAILY 03/17/17 [History Confirmed 03/17/17] - Physical Exam Vital Signs: Temperature 97.6 F Pulse Rate [Left Brachial] 72 Pulse Rate [Right Brachial] 70 Pulse Rate [Bilateral Radial] 70 Pulse Rate 74 Respiratory Rate 20 Blood Pressure [Left Arm] 125/60 Blood Pressure [Right Arm] 172/83 Blood Pressure 131/75 O2 Sat by Pulse Oximetry 100 Musculoskeletal: Left, Back:Lumbar, Tender - Plan Plan: 1. Lumbar corset. 2. WB as toleated. 3. Follow up in 3 weeks in office.
[2017-03-18] MEDS: MILK OF MAGNESIA PO SCH (20:30)
[2017-03-18] MEDS: RESTORIL CAP 15 MG PO PRN (23:00)
[2017-03-19] MEDS: SINEMET (PLAIN) 25/250 MG PO SCH ×3 (05:24→21:36)
[2017-03-19 06:15] LABS: BASOPHILS # (AUTO) 0.1 X10^3/uL (0.0-0.1); BASOPHILS % (AUTO) 0.8 % (0.2-1.0); EOSINOPHILS # (AUTO) 0.1 x10^3/uL (0.0-0.2); EOSINOPHILS % (AUTO) 2.3 % (0.9-2.9); HEMATOCRIT 32.9 % (42.0-54.0); HEMOGLOBIN 11.4 g/dL (13.5-18.0); LYMPHOCYTES # (AUTO) 1.2 X10^3/uL (1.3-2.9); LYMPHOCYTES % (AUTO) 18.2 % (21.0-51.0); MEAN CORPUSCULAR HEMOGLOBIN 30.6 pg (27.0-34.0); MEAN CORPUSCULAR HGB CONC 34.7 g/dL (33.0-35.0); MEAN CORPUSCULAR VOLUME 88.2 fL (80.0-100.0); MEAN PLATELET VOLUME 7.4 fL (7.4-11.0); MONOCYTES # (AUTO) 0.6 x10^3/uL (0.3-0.8); MONOCYTES % (AUTO) 9.4 % (0.0-13.0); NEUTROPHILS # (AUTO) 4.5 x10^3/uL (2.2-4.8); NEUTROPHILS % (AUTO) 69.3 % (42.0-75.0); PLATELET COUNT 286 X10^3/uL (150.0-450.0); RED BLOOD COUNT 3.72 X10^6/uL (4.7-6.0); RED CELL DISTRIBUTION WIDTH 13.6 % (11.6-16.5); WHITE BLOOD COUNT 6.5 X10^3/uL (3.6-10.0)
[2017-03-19 06:34] LABS: ALANINE AMINOTRANSFERASE 9 Units/L (12-78); ALBUMIN 2.1 g/dL (3.4-5.0); ALKALINE PHOSPHATASE 72 Units/L (46-116); ASPARTATE AMINO TRANSFERASE 18 Units/L (15-37); BLOOD UREA NITROGEN 9 mg/dL (7-18); CARBON DIOXIDE 24.1 mmol/L (21-32); CHLORIDE 105 mmol/L (98-107); COR CA(FOR HYPOALB) 9.5 mg/dL (8.5-10.1); CREATININE 0.81 mg/dL (0.70-1.30); SODIUM 136 mmol/L (136-145); TOTAL PROTEIN 5.8 g/dL (6.4-8.2); eGFR BLACK RACES > 60 (>60); eGFR NON BLACK RACES > 60 (>60)
[2017-03-19] MEDS: COLACE CAP 100 MG PO SCH ×2 (10:21→21:36)
[2017-03-19] MEDS: RESTORIL CAP 15 MG PO PRN (21:36)
[2017-03-19] MEDS: MILK OF MAGNESIA PO SCH (21:37)
[2017-03-20] MEDS: NS 1000 ML 1,000 ML IV SCH (05:36)
[2017-03-20] MEDS: SINEMET (PLAIN) 25/250 MG PO SCH (05:38)
[2017-03-20] MEDS: COLACE CAP 100 MG PO SCH (09:23)
[2017-03-20 12:48] VITALS: BP 160/73
== END 2017-03-20 13:30 | DRG 552 ==
LOC: ER 20:26 → MED/SURG 23:50 → OBSVTOIN 03-16 16:00
PROVIDERS: ADMIT Internal Medicine; ATTEND Internal Medicine
DX: S32.018A Other fracture of first lumbar vertebra, initial encounter for closed fracture (principal); G20 Parkinson's disease; M54.5 Low back pain; M48.06 Spinal stenosis, lumbar region; R29.6 Repeated falls; W10.1XXA Fall (on)(from) sidewalk curb, initial encounter; Z91.81 History of falling; R53.1 Weakness; R60.0 Localized edema; I10 Essential (primary) hypertension
CPT/HCPCS: 36415; 72128; 72131; 80053; 81001; 85025; 87086; 87088; 87186; 90471; 96365; 96372; 96374; 99218; 99231; 99284; A4216; A4222; G0378; J1885; J2175; J2270; J2550